=== PATIENT | female | born 1985 | race Caucasian/White ===

== ENCOUNTER 2019-05-11 15:49 | Outpatient (CLI) | payer OTHER ==
[~2019-05-11] VITALS: Ht 157.5 cm; Wt 77.2 kg
[2019-05-11 16:01] VITALS: Ht 157.5 cm; Wt 77.2 kg
[2019-05-11] MEDS ORDERED: PREN-93 PO (16:02)
--- NOTE | 2019-05-11 17:06 | TRIAGE ---
OB Triage Datetime Report Generated by CPN: 05/11/2019 17:05 Datetime: 05/11/2019 17:00 Stage of : OB Triage Maternal Assessment Level of Consciousness: Keenly Alert, Responsive DTR's/Clonus: DTRs 1+ Headache: Denies Nausea/Vomiting: Denies RUQ Epigastric Pain: Denies Labor Evaluation Frequency: NONE Monitor Mode: External Resting Tone [place]: Relaxed Heart Rate FHR Baseline Rate: 145 Monitor Mode: External US Variability: Moderate 6-25 bpm Accelerations: 15X15 Decelerations: None Category: Category I Pain Assessment Pain Scale: 1 Pain Presence: Constant Pain Type: Pressure Pain Goal: 3 Vaginal Exam Membrane Status: Intact Datetime: 05/11/2019 16:11 Maternal Assessment Level of Consciousness: Keenly Alert, Responsive DTR's/Clonus: DTRs 1+ Headache: Denies Blurred Vision: No Nausea/Vomiting: Denies RUQ Epigastric Pain: Denies Facial Edema: None Labor Evaluation Frequency: NONE Monitor Mode: External Resting Tone [place]: Relaxed Heart Rate FHR Baseline Rate: 145 Monitor Mode: External US Variability: Moderate 6-25 bpm Accelerations: 15X15 Decelerations: None Category: Category I Pain Assessment Pain Scale: 1 Pain Presence: Constant Pain Type: Pressure Pain Goal: 3 Pain Assessment Comments: VAGINAL Vaginal Exam Membrane Status: Intact Datetime: 05/11/2019 16:00 Stage of : OB Triage Assessment Type: Triage Maternal Assessment Level of Consciousness: Keenly Alert, Responsive DTR's/Clonus: DTRs 2+; No Clonus Headache: Denies Blurred Vision: No Respiratory Effort: Unlabored; Regular Rhythm; Equal Expansion Breath Sounds, Left: Clear and Equal Breath Sounds, Right: Clear and Equal Nausea/Vomiting: Denies RUQ Epigastric Pain: Denies Lower Extremities Edema: None Degree: None Upper Extremities Edema: None Degree: None Facial Edema: None Fall Risk Assessment History of Falling: (0) No Secondary Diagnosis: (0) No Ambulatory Aid: (0) Bedrest/Nurse Assist IV Therapy: (0) No Gait: (0) Normal/Bedrest/Immobile Mental Status: (0) Oriented to Own Ability Fall Score: 0 Fall Risk Score Definition: No Risk: No action required Datetime: 05/11/2019 15:43 Time of Arrival: 05/11/2019 15:43 EGA: 28.6 Arrived By: Ambulatory Arrived From: Home Chief Complaint: PT CAME IN FROM HOME C/O VAGINAL PRESSURE AND VAGINAL D/C FOR 3 DAYS Movement: Present Contractions: Denies/Absent Rupture of Membranes: Denies Vaginal Discharge: Denies Recent Sexual Intercouse: Denies Abdominal Trauma: Not Applicable Additional Patient Complaints: NONE Time Provider Notified: 05/11/2019 16:03 Provider Notified: ARYA Initial Plan: NAVNEET VAUGHAN, U[facility]
--- NOTE | 2019-05-12 15:16 | PN ---
Triage Information Date/Time Reason for visit: vaginal pressure Weeks of Gestation Patient is at 28+6/7 wks ga presents with vaginal pressure She reports positive movement, denies contractions, denies vaginal bleeding or leaking fluid /Para Diabetes: none Hypertention: none Objective Heart Rate: 140's Heart Rate Comments FHR tracing CAT 1 Contractions: None Results/Medications Results 24 hrs Laboratory Tests Test 05/11/19 15:15 Urine Color YELLOW Urine Clarity CLOUDY A Urine pH 8.0 Urine Specific [place] 1.014 Urine Ketones NEGATIVE Urine Nitrite NEGATIVE Urine Bilirubin NEGATIVE Urine Urobilinogen NEGATIVE Urine Leukocyte Esterase NEGATIVE Urine Microscopic RBC 0 Urine Microscopic WBC 3 Urine Squamous Epithelial Cells MODERATE Urine Bacteria FEW A Urine Mucus FEW A Urine Hemoglobin NEGATIVE Urine Glucose 1+ H Urine Total Protein NEGATIVE Imaging Results PROCEDURE: US OB. CLINICAL INDICATION: Pelvic pressure. Uterine contractions TECHNIQUE: Pelvic ultrasound performed for biophysical profile. COMPARISON: None available FINDINGS: Single intrauterine gestation present with heart rate at 159 beats per minute. Presentation is cephalic. Placenta is anterior, grade I. Biophysical profile score is 8/8 (breathing=2, movement=2, tone =2, fluid volume=2). Amniotic fluid volume is within normal limits, with STORM = 14.3 cm. The cervix is closed, the length measuring 4.1 cm. RPTAT:HJJR IMPRESSION: Biophysical profile score 8/8. Closed cervix length measures 4.1 cm. Physician Dhruv Date Time Electronically viewed and signed by Physician Dhruv on 05/11/2019 16:44 JR/ CC: ALISON KOENIG MD [id number] Disposition: Discharge Assessment/Plan Patient instructed to increase po hydration Labor precautions were given She was instructed to F/U with [facility] in 1-2 days ALISON KOENIG MD May 12, 2019 15:16
== END 2019-05-11 17:06 | disposition home or self-care (01) ==
LOC: OBT 15:49 → L-D 15:51 → OBT 17:06
PROVIDERS: ATTEND Obstetrics & Gynecology
DX: O26.893 Other specified pregnancy related conditions, third trimester (principal); R10.2 Pelvic and perineal pain; Z3A.38 38 weeks gestation of pregnancy
CPT/HCPCS: 76817; 76818; 81001; Z7500; G0463

== ENCOUNTER 2019-06-25 09:36 | Outpatient (CLI) | payer OTHER ==
[~2019-06-25] VITALS: Ht 157.5 cm; Wt 77.7 kg
[~2019-06-25 09:36] MED LIST: PREN-93 PO
[2019-06-25 09:52] VITALS: Ht 157.5 cm; Wt 77.7 kg
[2019-06-25 09:53] VITALS: BP 108/61; PULSE 114; RESP 18
--- NOTE | 2019-06-25 13:29 | TRIAGE ---
OB Triage Datetime Report Generated by CPN: 06/25/2019 13:29 Datetime: 06/25/2019 10:02 Stage of : OB Triage Assessment Type: Triage Maternal Assessment Level of Consciousness: Keenly Alert, Responsive DTR's/Clonus: DTRs 2+; No Clonus Headache: Denies Blurred Vision: No Respiratory Effort: Unlabored; Regular Rhythm; Equal Expansion Breath Sounds, Left: Clear and Equal Breath Sounds, Right: Clear and Equal Nausea/Vomiting: Denies RUQ Epigastric Pain: Denies Lower Extremities Edema: None Degree: None Upper Extremities Edema: None Degree: None Facial Edema: None Temperature Route: Oral Fall Risk Assessment History of Falling: (0) No Secondary Diagnosis: (0) No Ambulatory Aid: (0) Bedrest/Nurse Assist IV Therapy: (0) No Gait: (0) Normal/Bedrest/Immobile Mental Status: (0) Oriented to Own Ability Fall Score: 0 Fall Risk Score Definition: No Risk: No action required Labor Evaluation Frequency: none Monitor Mode: External Resting Tone [place]: Relaxed Heart Rate FHR Baseline Rate: 140 Monitor Mode: External US FHR Baseline Changes: No Baseline Change Variability: Moderate 6-25 bpm Accelerations: 15X15 Decelerations: None Category: Category I Pain Assessment Pain Scale: 0 Pain Presence: None/Denies Pain Type: N/A Datetime: 06/25/2019 10:00 Time of Arrival: 06/25/2019 09:27 EGA: 35.2 Arrived By: Ambulatory Arrived From: Home Chief Complaint: pt c/o leaking fluid from 7 am Movement: Present Rupture of Membranes: Ruptured Vaginal Bleeding: None Vaginal Discharge: Denies Recent Sexual Intercouse: Denies Abdominal Trauma: Not Applicable Patient Complaints: None Time Provider Notified: 06/25/2019 10:11 Initial Plan: NST Datetime: 05/11/2019 16:00 Fall Score: 0 Fall Risk Score Definition: No Risk: No action required Datetime: 05/11/2019 15:43 EGA: 28.6
--- NOTE | 2019-06-25 18:24 | PN ---
Triage Information Date/Time Reason for visit: LOF Weeks of Gestation 35 weeks and 2 days /Para Diabetes: none Hypertention: none Additional information 33-year-old G7, P3 with IUP at 35 weeks and 2 days presented with complaint of leaking of fluid since 7 AM. Patient denies any contractions or vaginal bleeding or decreased movement. Denies any complication in her course. Objective Vital Signs Date Temp Pulse Resp B/P (MAP) Pulse Ox O2 O2 Flow FiO2 Time Delivery Rate 06/25/19 97.9 114 18 108/61 Room Air 09:53 (77) Heart Rate: 130's Heart Rate Comments Category 1 Contractions: None Exam GA: A&O, NAD Abdomen : Soft, Size consistent with date. NST: Cat 1 SSE: Neg Pooling, Neg Nit. ROM negative Results/Medications Results 24 hrs Laboratory Tests Test 06/25/19 10:48 Membranes Rupture NEGATIVE Imaging Results PROCEDURE: US OB. CLINICAL INDICATION: leaking fluid TECHNIQUE: Multiple sonographic images of the pelvis were obtained. The images were reviewed on a PACS workstation. COMPARISON: 05/14/2019 FINDINGS: There is a single viable intrauterine gestation. Cardiac activity is present with 154 beats per minute. There is a vertex presentation. Measurements were made in order to determine age. The results are as follows: Incidentally noted is a possible kidney septated cyst measuring 2.3 cm. The placenta is fundal, grade II. There is a normal amount of amniotic fluid with an STORM = 11.2 cm. IMPRESSION: Normal amount of amniotic fluid. STORM = 11.2 cm. Incidentally noted is a possible kidney septated cyst measuring 2.3 cm. Disposition: Discharge Assessment/Plan IUP at 35 weeks and 2 days No evidence of PPROM, labor testing reassuring Incidental finding of kidney septated cyst Patient was informed and advised to have a follow-up with the OB office next week Discussed need to have evaluation by appeals board referee with possible sudden after . labor precautions kick count discussed Follow-up within 48 hours after discharge from the hospital discussed Patient verbalized understanding and all questions were answered to patient's best satisfaction. TEETEE KARIMI MD Jun 25, 2019 18:24
== END 2019-06-25 13:10 | disposition home or self-care (01) ==
LOC: OBT 09:36 → L-D 09:36 → OBT 13:10
PROVIDERS: ATTEND Obstetrics & Gynecology
DX: O26.893 Other specified pregnancy related conditions, third trimester (principal); N89.8 Other specified noninflammatory disorders of vagina; Z3A.35 35 weeks gestation of pregnancy
CPT/HCPCS: 76815; 84112; Z7500; G0463

== ENCOUNTER 2019-07-08 10:28 | Outpatient (CLI) | payer OTHER ==
[~2019-07-08] VITALS: Ht 157.5 cm; Wt 78.0 kg
[2019-07-08 10:39] VITALS: Ht 157.5 cm; Wt 78.0 kg
[2019-07-08 10:44] VITALS: BP 107/58; PULSE 83; RESP 18
== END 2019-07-08 13:35 | disposition home or self-care (01) ==
LOC: OBT 10:28 → L-D 10:30 → OBT 13:35
PROVIDERS: ATTEND Obstetrics & Gynecology
DX: O35.8XX0 Maternal care for other (suspected) fetal abnormality and damage, not applicable or unspecified (principal); Z3A.37 37 weeks gestation of pregnancy
CPT/HCPCS: 76815; G0463

== ENCOUNTER 2019-07-15 11:32 | Outpatient (CLI) | payer OTHER ==
[~2019-07-15] VITALS: Ht 157.5 cm; Wt 77.7 kg
[2019-07-15 13:43] VITALS: Ht 157.5 cm; Wt 77.7 kg
[2019-07-15 13:44] VITALS: BP 103/63; PULSE 87
== END 2019-07-15 14:13 | disposition home or self-care (01) ==
LOC: L-D 11:32 → OBT 11:32 → L-D 12:58 → OBT 14:13
PROVIDERS: ATTEND Obstetrics & Gynecology
DX: O43.123 Velamentous insertion of umbilical cord, third trimester (principal); Z3A.38 38 weeks gestation of pregnancy
CPT/HCPCS: 76818; G0463

== ENCOUNTER 2019-07-18 07:36 | Outpatient (CLI) | payer OTHER ==
[~2019-07-18] VITALS: Ht 157.5 cm; Wt 78.2 kg
[2019-07-18 08:10] VITALS: Ht 157.5 cm; Wt 78.2 kg
[2019-07-18 08:11] VITALS: BP 112/64; PULSE 79
== END 2019-07-18 09:30 | disposition home or self-care (01) ==
LOC: L-D 07:36 → OBT 07:36
PROVIDERS: ATTEND Obstetrics & Gynecology
DX: O43.123 Velamentous insertion of umbilical cord, third trimester (principal); Z3A.38 38 weeks gestation of pregnancy
CPT/HCPCS: 76818; Z7500; G0463

== ENCOUNTER 2019-09-22 16:38 | Emergency (ER) | payer OTHER ==
[~2019-09-22] VITALS: Wt 71.1 kg
[~2019-09-22 16:38] MED LIST changes: +FAMO-96 PO; +METO10TA92 PO
[2019-09-22 16:42] VITALS: BP 117/74; PULSE 77; RESP 18
[2019-09-22] MEDS ORDERED: FAMOTIDINE 20 MG TAB PO STA (17:20)
[2019-09-22] MEDS ORDERED: AL HYDROX/MG HYDROX/SIMETH 30 ML CUP PO ONE (17:30)
[2019-09-22] MEDS ORDERED: METOCLOPRAMIDE 10 MG TAB PO ONE (17:30)
== END 2019-09-22 19:11 | disposition home or self-care (01) ==
LOC: FTE 16:38
DX: R10.13 Epigastric pain (principal)
CPT/HCPCS: 36415; 76705; 80053; 81025; 83690; 85025; Z7502; Z7610